=== PATIENT | female | born 1935 | race Caucasian/White ===

== ENCOUNTER 2018-02-27 04:15 | Emergency (ER) | payer MEDICARE, MEDICAID ==
[~2018-02-27] VITALS: Ht 167.6 cm; Wt 47.2 kg
[2018-02-27 04:15] VITALS: BP 151/93
--- NOTE | 2018-02-27 04:15 | NUR ---
82/F BIBA FOR SUDDEN ONSET MIDBACK PAIN X 1 HOUR AGO. DENIES TRAUMA/FALLS. DENIES ANY OTHER PAIN. DENIES SOB/CP, N/V/D, FEVER/CHILLS. UNKNOWN PMH/RX
--- NOTE | 2018-02-27 04:19 | NUR ---
PT [facility]. TAKEN TO BED 10
--- NOTE | 2018-02-27 04:26 | NUR ---
Dr. Serrano evaluating patient at bedside.
[2018-02-27] MEDS ORDERED: NACL 0.9% 1,000 ML IV ONE (04:35)
[2018-02-27] MEDS ORDERED: fentaNYL 0.05 MG/ML VIAL IVP ONE (04:35)
[2018-02-27 04:51] LABS: BASOPHILS % (AUTO) 0.3 % (0.0-2.0); EOSINOPHILS # (AUTO) 0.1 K/uL (0-0.4); HEMATOCRIT 37.6 % (36-48); HEMOGLOBIN 12.2 g/dL (12.0-16.0); LYMPHOCYTES # (AUTO) 1.7 K/uL (2.5-16.5); LYMPHOCYTES % (AUTO) 18.4 % (20.5-51.1); MEAN CORPUSCULAR HEMOGLOBIN 28 pg (27-31); MEAN CORPUSCULAR HGB CONC 33 g/dL (33-37); MEAN CORPUSCULAR VOLUME 84.8 fL (80-94); MONOCYTES # (AUTO) 0.6 K/uL (0.8-1.0); MONOCYTES % (AUTO) 6.4 % (1.7-9.3); NEUTROPHILS # (AUTO) 6.9 K/uL (1.8-7.7); NEUTROPHILS % (AUTO) 73.9 % (42.2-75.2); PLATELET COUNT (AUTO) 110 K/uL (140-450); RED BLOOD CELL COUNT(AUTO) 4.44 MIL/uL (4.20-5.40); WHITE BLOOD COUNT (AUTO) 9.4 K/uL (4.8-10.8)
[2018-02-27 05:07] LABS: ALBUMIN 3.7 g/dL (3.4-5.0); ANION GAP 13.8 (8-16); ASPARTATE AMINOTRANSFERASE 16 U/L (15-37); CARBON DIOXIDE 28.7 mmol/L (21-32); CHLORIDE 102 mmol/L (98-107); CREATININE 0.9 mg/dL (0.6-1.3); GLUCOSE 122 mg/dL (74-106); POTASSIUM 3.5 mmol/L (3.5-5.1); SODIUM SERUM 141 mmol/L (136-145); TOTAL BILIRUBIN 0.4 mg/dL (0.0-1.0); UREA NITROGEN, BLOOD 16 mg/dL (7-18)
--- NOTE | 2018-02-27 05:07 | NUR ---
PT TAKEN TO CT
[2018-02-27 05:13] LABS: PROTHROMBIN TIME 10.9 secs (10.8-13.4)
[2018-02-27] MEDS ORDERED: METOPROLOL 25 MG TAB PO ONE (05:30)
--- NOTE | 2018-02-27 05:31 | NUR ---
PT RETURN FROM CT
[2018-02-27 06:11] LABS: BILIRUBIN,URINE NEGATIVE (NEGATIVE); BLOOD, URINE NEGATIVE (NEGATIVE); COLOR,URINE YELLOW (YELLOW); LEUKOCYTE ESTERASE ,URINE NEGATIVE (NEGATIVE); NITRITE, URINE NEGATIVE (NEGATIVE); PH,URINE 7.5 (5.0-9.0); UGLUCOSE NEGATIVE (NEGATIVE)
--- NOTE | 2018-02-27 06:20 | NUR ---
Patient appears to be resting comfortably in bed. Vital Signs within normal limits. Respirations even and unlabored.
[2018-02-27 06:22] LABS: APPEARANCE,URINE SLIGHTLY HAZY (CLEAR)
[2018-02-27 06:23] LABS: RBC,URINE NONE SEEN /HPF (0-5); WBC,URINE 0-5 (RARE) /HPF (0-5)
--- NOTE | 2018-02-27 06:55 | NUR ---
Patient to be transferred to [facility]. Is being transferred due to [employer]. Receiving facility has accepting physician and available space. ER physician has signed transfer form. Patient or responsible democrat has agreed to transfer and signed form. Patient belongings inventoried and will be sent with patient. Copy of nursing notes, lab reports, EKG, Physicians Orders and X-rays to be sent with patient. Report called to TEJ ZABALA at receiving facility. [facility] ambulance service has been called for transfer. ETA is AT [id number] FOR [employer].
--- NOTE | 2018-02-27 07:12 | NUR ---
Pt report given to JUVENAL ZABALA. Transfer of care at this time.
[2018-02-27 07:49] VITALS: BP 161/91
--- NOTE | 2018-02-27 07:51 | NUR ---
Patient discharged with v/s stable. Written and verbal after care instructions given and explained. Patient verbalized understanding. Ambulance Transport with [facility] TO [facility] . All questions addressed prior to discharge. Advised to follow up with PMD.
== END 2018-02-27 07:51 | disposition short-term general hospital (02) ==
LOC: MED 04:15
DX: I71.4 Abdominal aortic aneurysm, without rupture (principal); I71.2 Thoracic aortic aneurysm, without rupture; N13.30 Unspecified hydronephrosis
CPT/HCPCS: 36415; 71045; 74176; 80053; 81001; 83605; 83690; 83880; 84484; 85025; 85610; 85730; 87040; 87086; 93005; 96374; 99285; J3010; J7030; Q0092